=== PATIENT | female | born 1935 | race Caucasian/White ===

== ENCOUNTER → 2016-06-07 | Outpatient (CLI) | payer BC ==
[~2016-06-07] MED LIST: BENA20TA14 PO; CALC600T PO; LORA-741 PO; MULT-580 PO; SIMV20TA2 PO; VITACAP PO
[2016-06-07 12:20] LABS: ALT/SGPT 26 U/L (12-78); BLOOD UREA NITROGEN 21 mg/dl (7-18); BUN/CREATININE RATIO 35.9 (10-20); CALCIUM 9.1 mg/dl (8.5-10.1); CARBON DIOXIDE 32 mmol/L (21-32); CHLORIDE 103 mmol/L (98-107); CHOLESTEROL 218 mg/dl (0-200); CREATININE 0.58 mg/dl (0.60-1.20); GLUCOSE 82 mg/dl (70-99); POTASSIUM 4.1 mmol/L (3.5-5.1); SODIUM 141 mmol/L (136-145)
[2016-06-07 12:24] LABS: ALB/GLOB RATIO 1.2 (0.9-2); ALKALINE PHOSPHATASE 68 U/L (45-117); AST/SGOT 23 U/L (15-37); CHOLESTEROL/HDL RATIO 3.1; HDL CHOLESTEROL 70 mg/dl; LDL CHOLESTEROL CALCULATED 126 mg/dl; TRIGLYCERIDES 108 mg/dl (0-150); VERY LOW DENSITY LIPOPROT CALC 22 mg/dl
[2016-06-07 12:34] LABS: ESTIMATED AVERAGE GLUCOSE 117 mg/dl; HA1C FLAG Normal (Normal)
== END | disposition home or self-care (01) ==
LOC: C.LABBC 10:20
PROVIDERS: ATTEND Family Medicine
DX: R73.09 Other abnormal glucose (principal)

== ENCOUNTER 2016-10-21 10:39 | Emergency (ER) | payer BC ==
[~2016-10-21] VITALS: Ht 157.5 cm; Wt 68.1 kg
[~2016-10-21 10:39] MED LIST changes: -LORA-741 PO
[2016-10-21 10:42] VITALS: TEMP 36.6; Ht 157.5 cm; Wt 68.1 kg
[2016-10-21] MEDS ORDERED: LORA-741 PO (11:10)
--- NOTE | 2016-10-21 11:11 | EMERGENCY ROOM VISIT NOTE ---
History Report prepared by Luisa: Jes Flores Under the Supervision of: Dr. Jose Wylie M.D. First contact with patient: 10:55 Chief Complaint: FALL Stated Complaint: HEAD INJURY FROM A FALL History of Present Illness The patient is a 80 year old female who presents to the Emergency Room with complaints of a sudden fall that occurred this morning prior to arrival. She currently rates her discomfort as a 5/10 in severity. The patient states that three times per week she goes to an exercise class with a friend due to her chronic back problems. She states that as she was walking in to the facility when she tripped over weights, causing her to fall face and head first into a door. The patient states that she notes right forehead pain, right eye pain. She notes that she felt unsteady on her feet after the fall, but states that her gait has improved. The patient denies any loss of consciousness, neck pain , or back pain. She denies being on any blood thinners. Source of History: patient Onset: this morning prior to arrival Position: other (global) Symptom Intensity: 5/10 Quality: other (fall) Timing: other (sudden) Associated Symptoms: No LOC, No back pain, No neck pain Note: Associated Symptoms: right eye pain, unsteady gait Review of Systems See HPI for pertinent positives & negatives. A total of 10 systems reviewed and were otherwise negative. Past Medical & Surgical Medical Problems: (1) Bronchitis (2) History of appendectomy (3) History of tonsillectomy (4) Left leg DVT (5) Pneumonia Surgical Problems: (1) H/O: hysterectomy Family History Heart disease Hypertension Kidney disease Kidney stones Social History Smoking Status: Never Smoker Smokeless Tobacco Use: No Alcohol Use: none Marital Status: Housing Status: lives with significant other Occupation Status: retired Current/Historical Medications Scheduled Benazepril (Lotensin), 20 MG PO DAILY Calcium Carbonate (Calcium 600), 600 MG PO DAILY Lorazepam (Ativan), 0.5 MG PO BID Simvastatin (Zocor), 20 MG PO HS Vitamins C & E (Vitamin C & E Combination), 1 CAP PO DAILY Allergies Coded Allergies: Atropine (Verified Allergy, Unknown, 10/21/16) Cephalosporins (Verified Allergy, Unknown, CEPHALEXIN, 10/21/16) Meperidine (Verified Allergy, Unknown, 10/21/16) Physical Exam Vital Signs Date Time Temp Pulse Resp B/P Pulse Ox O2 Delivery O2 Flow Rate FiO2 10/21/16 12:18 74 18 190/101 96 10/21/16 10:55 196/118 10/21/16 10:42 36.6 82 18 222/111 98 Room Air Physical Exam GENERAL: Patient is a healthy-appearing well-nourished HEAD: Normocephalic atraumatic EYES: Ocular movements intact pupils equal and react to light OROPHARYNX mucous membranes are moist no exudates present no erythema or edema present NECK: Supple no nuchal rigidity CHEST: Good equal expansion LUNGS: Clear and equal to auscultation CARDIAC: Normal S1 and S2 ABDOMEN: Soft nontender no guarding BACK: No CVA tenderness EXTREMITIES: No pain upon palpation normal muscle strength in all groups no clubbing cyanosis or edema NEURO: Patient is following commands is answering questions appropriately. Alert and oriented x3 Cranial Nerves 2-12 grossly intact. Patient is able to walk on tip toes and heels, no evidence for balance dysfunction. Medical Decision & Procedures ER Provider Diagnostic Interpretation: CT results as stated below per my review and radiologist interpretation: CT OF THE HEAD WITHOUT CONTRAST CLINICAL HISTORY: Fall. Right eye pain. COMPARISON STUDY: No previous studies for comparison. CT DOSE: 638.56 mGycm TECHNIQUE: Helical axial images of the head were obtained without IV contrast. Automated exposure control was utilized for the study. FINDINGS: No acute intracranial hemorrhage, midline shift or mass effect is present. Ventricular system is normal. Basilar cisterns are patent. There are no extra-axial collections. Moderate white matter hypodensity suggests small vessel disease. A mildly displaced left nasal bone fracture is probably old. The right maxillary sinus is diminutive. There is a 2.1 cm expansile lesion within the right ethmoid sinuses which could reflect a mucocele. The globes are intact. There is no calvarial fracture. IMPRESSION: 1. No acute intracranial findings. 2. No calvarial fracture. 3. Mildly displaced left nasal bone fracture which is likely old. 4. 2.1 cm expansile right ethmoid sinus lesion. While indeterminate, a mucocele is favored. Electronically signed by: Richie Lion M.D. 10/21/2016 11:49 AM Dictated Date/Time: 10/21/2016 11:44 AMCT OF THE HEAD WITHOUT CONTRAST CLINICAL HISTORY: Fall. Right eye pain. COMPARISON STUDY: No previous studies for comparison. CT DOSE: 638.56 mGycm TECHNIQUE: Helical axial images of the head were obtained without IV contrast. Automated exposure control was utilized for the study. FINDINGS: No acute intracranial hemorrhage, midline shift or mass effect is present. Ventricular system is normal. Basilar cisterns are patent. There are no extra-axial collections. Moderate white matter hypodensity suggests small vessel disease. A mildly displaced left nasal bone fracture is probably old. The right maxillary sinus is diminutive. There is a 2.1 cm expansile lesion within the right ethmoid sinuses which could reflect a mucocele. The globes are intact. There is no calvarial fracture. IMPRESSION: 1. No acute intracranial findings. 2. No calvarial fracture. 3. Mildly displaced left nasal bone fracture which is likely old. 4. 2.1 cm expansile right ethmoid sinus lesion. While indeterminate, a mucocele is favored. Electronically signed by: Richie Lion M.D. 10/21/2016 11:49 AM Dictated Date/Time: 10/21/2016 11:44 AM ED Course 1058: Past medical records reviewed. The patient was evaluated in room C1B. A complete history and physical examination was performed. 1159: Per nursing staff the patient had an ambulation trial and did well. 1200: I reevaluated the patient and she is resting comfortably. I discussed the exam findings with her and I discussed the treatment plan. She verbalized complete understanding and agreement. She is ready to go home. Medical Decision This is a 80-year-old female that presents emergency department after a fall at home. The patient was sent in by her primary care physician's office over concerns that the patient was off balance. The patient reports that she was stunned was feeling a lot better now. She was sent for CAT scan of the head which does not show any evidence of acute process. The patient was a related by myself as well as nursing staff. The patient is able to walk on her tiptoes and her heels and I feel can be safely discharged home. Both patient and were in agreement with the treatment plan. Impression Primary Impression: Black eye of right side Additional Impression: Fall Scribe Attestation The scribe's documentation has been prepared under my direction and personally reviewed by me in its entirety. I confirm that the note above accurately reflects all work, treatment, procedures, and medical decision making performed by me. Departure Information Dispostion Home / Self-Care Referrals Tayo Payne M.D. (PCP) Forms HOME CARE DOCUMENTATION FORM, IMPORTANT VISIT INFORMATION Patient Instructions Black Eye, ED Head Injury Closed, My [facility] Additional Instructions You have been examined and treated today on an emergency basis only. This is not a substitute for, or an effort to provide, complete comprehensive medical care. It is impossible to recognize and treat all injuries or illnesses in a single emergency department visit. It is therefore important that you follow up closely with Dr Payne. Call as soon as possible for an appointment. Thank you for your time and consideration. I look forward to speaking with you again soon. Please don't hesitate to call us if you have any questions.- Problem Qualifiers Additional Impression: Fall Encounter type: initial encounter Qualified Codes: W19.XXXA - Unspecified fall, initial encounter
--- NOTE | 2016-10-21 11:50 | DIAGNOSTIC IMAGING REPORT ---
CT OF THE HEAD WITHOUT CONTRAST CLINICAL HISTORY: Fall. Right eye pain. COMPARISON STUDY: No previous studies for comparison. CT DOSE: 638.56 mGycm TECHNIQUE: Helical axial images of the head were obtained without IV contrast. Automated exposure control was utilized for the study. FINDINGS: No acute intracranial hemorrhage, midline shift or mass effect is present. Ventricular system is normal. Basilar cisterns are patent. There are no extra-axial collections. Moderate white matter hypodensity suggests small vessel disease. A mildly displaced left nasal bone fracture is probably old. The right maxillary sinus is diminutive. There is a 2.1 cm expansile lesion within the right ethmoid sinuses which could reflect a mucocele. The globes are intact. There is no calvarial fracture. IMPRESSION: 1. No acute intracranial findings. 2. No calvarial fracture. 3. Mildly displaced left nasal bone fracture which is likely old. 4. 2.1 cm expansile right ethmoid sinus lesion. While indeterminate, a mucocele is favored. Electronically signed by: Richie Lion M.D. 10/21/2016 11:49 AM Dictated Date/Time: 10/21/2016 11:44 AM
[2016-10-21 12:18] VITALS: BP 190/101; PULSE 74; O2SAT 96
== END 2016-10-21 12:21 | disposition home or self-care (01) ==
LOC: C.EDB 10:41 → C.EDC 12:21
DX: S00.11XA Contusion of right eyelid and periocular area, initial encounter (principal); W01.0XXA Fall on same level from slipping, tripping and stumbling without subsequent striking against object, initial encounter; Y92.89 Other specified places as the place of occurrence of the external cause; Z86.718 Personal history of other venous thrombosis and embolism; Z90.710 Acquired absence of both cervix and uterus; Z98.890 Other specified postprocedural states; Z79.899 Other long term (current) drug therapy; Z88.8 Allergy status to other drugs, medicaments and biological substances; Z82.49 Family history of ischemic heart disease and other diseases of the circulatory system; Z84.1 Family history of disorders of kidney and ureter

== ENCOUNTER → 2017-03-17 | Outpatient (CLI) | payer BC ==
[~2017-03-17] MED LIST changes: +LORA-741 PO; -MULT-580 PO
--- NOTE | 2017-03-17 15:55 | ECHOCARDIOGRAM REPORT ---
*NOTICE TO RECEIVING CONSTITUTION PARTY AGENCY This information is strictly Confidential and protected under [place] law. [place] law prohibits you from making any further disclosure of this information unless further disclosure is expressly permitted by the written consent of the person to whom it pertains or is authorized by law. A general authorization for the release of medical or other information is not sufficient for this purpose. Hospital accepts no responsibility if the information is made available to any other person, INCLUDING THE PATIENT. Interpretation Summary * Name: TRAY MENDOZA Study Date: 03/17/2017 01:00 PM * Patient Location: [facility] HR: 63 * : 1935 (M/d/yyyy) Gender: Female Height: 61 in * Age: 81 yrs Ethnicity: [place] Weight: 148 lb * Ordering Physician: Tayo Payne * Referring Physician: Tayo Payne. * Performed By: Bhakti Burns RCS * * Reason For Study: EDEMA / R/O CHF * BSA: 1.7 m2 * -- Conclusions -- * Left ventricular systolic function is normal. * No regional wall motion abnormalities noted. * Ejection Fraction = 60-65%. * There is mild concentric left ventricular hypertrophy. * Grade I diastolic dysfunction, (abnormal relaxation pattern). * There is mild mitral regurgitation. * There is mild tricuspid regurgitation. Procedure Details * A complete two-dimensional transthoracic echocardiogram was performed (2D, M-mode, Doppler and color flow Doppler). Left Ventricle * The left ventricle is normal in size. * There is mild concentric left ventricular hypertrophy. * Left ventricular systolic function is normal. * Ejection Fraction = 60-65%. * No regional wall motion abnormalities noted. Right Ventricle * The right ventricle is grossly normal size. * The right ventricular systolic function is normal as assessed by tricuspid annular plane systolic excursion (TAPSE) (normal >1.5 cm). Atria * The left atrium is mildly dilated. * Borderline right atrial enlargement. * No ASD detected; PFO is not assessed. Mitral Valve * The mitral valve is grossly normal. * There is no mitral valve stenosis. * There is mild mitral regurgitation. Tricuspid Valve * The tricuspid valve is not well visualized, but is grossly normal. * No significant tricuspid stenosis. * There is mild tricuspid regurgitation. Aortic Valve * The aortic valve is not well visualized. * The aortic valve opens well. * Aortic valve sclerosis mild, without significant aortic valvular stenosis. * There is no significant aortic regurgitation. Pulmonic Valve * The pulmonary valve is not well seen, but the Doppler examination is normal without significant regurgitation or stenosis. Great Vessels * The aortic root is normal size. * The pulmonary is not well visualized. Pericardium/Pleural * There is no pericardial effusion. Great Vessels * Normal inferior vena cava size and collapsability with sniff indicates a normal right atrial pressure of 3 mmHg Left Ventricular Diastolic Function * Grade I diastolic dysfunction, (abnormal relaxation pattern). MMode 2D Measurements and Calculations IVSd 1.3 cm IVSs 1.6 cm LVIDd 3.3 cm LVIDs 2.0 cm LVPWd 1.2 cm LVPWs 1.3 cm IVS/LVPW 1.1 FS 39.8 % EDV(Teich) 43.1 ml ESV(Teich) 12.2 ml EF(Teich) 71.7 % EDV(cubed) 34.9 ml ESV(cubed) 7.6 ml EF(cubed) 78.2 % % IVS thick 21.4 % % LVPW thick 6.8 % LV mass(C)d 136.0 grams LV mass(C)dI 81.8 grams/m\S\2 LV mass(C)s 91.8 grams LV mass(C)sI 55.2 grams/m\S\2 SV(Teich) 30.9 ml SI(Teich) 18.6 ml/m\S\2 SV(cubed) 27.3 ml SI(cubed) 16.4 ml/m\S\2 Ao root diam 2.9 cm Ao root area 6.5 cm\S\2 ACS 1.7 cm LA dimension 2.7 cm LA/Ao 0.92 LVOT diam 2.0 cm LVOT area 3.2 cm\S\2 Doppler Measurements and Calculations MV E max august 65.8 cm/sec MV A max august 109.5 cm/sec MV E/A 0.60 MV P1/2t max august 66.4 cm/sec MV P1/2t 61.8 msec MVA(P1/2t) 3.6 cm\S\2 MV dec slope 314.7 cm/sec\S\2 MV dec time 0.19 sec Ao V2 max 77.6 cm/sec Ao max PG 2.4 mmHg Ao max PG (full) -0.24 mmHg DONNA(V,A) 3.3 cm\S\2 DONNA(V,D) 3.3 cm\S\2 LV V1 max PG 2.7 mmHg LV V1 max 81.4 cm/sec PA V2 max 50.9 cm/sec PA max PG 1.0 mmHg TR max august 242.4 cm/sec
== END | disposition home or self-care (01) ==
LOC: C.CPL 12:40
PROVIDERS: ATTEND Family Medicine
DX: R60.9 Edema, unspecified (principal)

== ENCOUNTER → 2017-06-19 | Outpatient (CLI) | payer BC ==
[2017-06-19 10:58] LABS: BASO % 0.3 %; BASO ABS # 0.01 K/uL (0-0.2); EOS % 3.4 %; EOS ABS # 0.13 K/uL (0-0.5); HEMATOCRIT 42.8 % (37-47); HEMOGLOBIN 14.6 g/dL (12.0-16.0); IG# 0.01 K/uL (0.00-0.02); LYMPH % 45.7 %; LYMPH ABS # 1.76 K/uL (1.2-3.4); MEAN CELL VOLUME 87.5 fL (80-100); MEAN CORPUSCULAR HEMOGLOBIN 29.9 pg (25-34); MEAN CORPUSCULAR HGB CONC 34.1 g/dl (32-36); MEAN PLATELET VOLUME 10.1 fL (7.4-10.4); MONO % 11.2 %; MONO ABS # 0.43 K/uL (0.11-0.59); NEUT % 39.1 %; NEUT ABS # 1.51 K/uL (1.4-6.5); PLATELET COUNT 259 K/uL (130-400); RED CELL DISTRIBUTION WIDTH CV 14.6 % (11.5-14.5); RED CELL DISTRIBUTION WIDTH SD 46.9 fL (36.4-46.3); WHITE BLOOD COUNT 3.85 K/uL (4.8-10.8)
[2017-06-19 11:26] LABS: HEMOGLOBIN A1C 5.7 % (4.5-5.6)
[2017-06-19 11:37] LABS: ALBUMIN 3.7 gm/dl (3.4-5.0); ALT/SGPT 25 U/L (12-78); BLOOD UREA NITROGEN 17 mg/dl (7-18); CALCIUM 9.6 mg/dl (8.5-10.1); CARBON DIOXIDE 33 mmol/L (21-32); CHOLESTEROL 217 mg/dl (0-200); CREATININE 0.61 mg/dl (0.60-1.20); GLUCOSE 86 mg/dl (70-99); POTASSIUM 4.1 mmol/L (3.5-5.1); SODIUM 138 mmol/L (136-145); URIC ACID 4.9 mg/dl (2.6-7.2)
[2017-06-19 11:47] LABS: ALKALINE PHOSPHATASE 63 U/L (45-117); AST/SGOT 21 U/L (15-37); LDL CHOLESTEROL CALCULATED 127 mg/dl; TOTAL PROTEIN 7.2 gm/dl (6.4-8.2); TRANSFERRIN 318 mg/dl (200-360)
== END | disposition home or self-care (01) ==
LOC: C.LABBC 08:12
PROVIDERS: ATTEND Family Medicine
DX: R73.09 Other abnormal glucose (principal); E55.9 Vitamin D deficiency, unspecified; D51.9 Vitamin B12 deficiency anemia, unspecified; E78.9 Disorder of lipoprotein metabolism, unspecified; R53.83 Other fatigue

== ENCOUNTER 2021-05-27 03:14 | Inpatient (IN) ==
[2021-05-27] MEDS ORDERED: SODIUM CHLORIDE 0.9% 1000ML 1,000 ML IV ONE (03:26)
--- NOTE | 2021-05-27 03:34 | Emergency Department Note ---
Impression & Plan Syncope and collapse, Dehydration, moderate, Diarrhea ED Provider Note Name: TRAY MENDOZA Age: 85 Sex: F Arrives Via: Ambulance Informant: Patient, daughter ED Provider: Alex Guardado MD Chief Complaint: Syncope Impression: As per impressions above Medical Decision Makin-year-old female with a history of hypertension anxiety and vitamin D deficiency who has a very remote history of DVT which after further discussion appears to be secondary to surgery she had had on her leg. Patient arrives following a syncopal episode while sitting on the toilet after having a large amount of diarrhea the last 2 days. She is moderately dehydrated but otherwise l ooks quite well. She was given IV fluids and is feeling better. CT head is negative. EKG and troponin are unremarkable. D-dimer is within normal range for patient of her age. She is in no distress and she looks well. Unfortunately given prolonged syncope and the concerns for other issues I do not feel that blaming this on dehydration without further work-up would be appropriate. Patient and daughter are comfortable with monitoring in hospital and hospitalist was consulted for further management. I do not feel patient has a PE. Does not appear to be ACS though cannot rule out arrhythmia however on cardiac monitoring while in department she has no abnormalities noted. Prior Medical Record and Triage/Nursing Notes reviewed by Me Additional history obtained from chart Differentials:Vasovagal event, dehydration, infection, hypoglycemia, electrolyte abnormalities, cardiac sources, intracerebral event, pulmonary embolism, seizure, toxicologic, neurologic, as well as other pathologies. Vital Signs: reviewed and remarkable for no significant abnormalities Interventions: Normal saline 1 L bolus IV Labs:Reviewed and remarkable for no significant abnormalities Imagin view chest x-ray unremarkable. CT head as per stat read negative EKG:Per My Interpretation: Indication Syncope: Sinus 84 bpm, qtc 423 with PACs. No Ischemia. Compared to EKG 06/02/04, no significant changes. Cardiac/Tele Monitoring: Cardiac Monitoring: An Order was placed for continuous cardiac monitoring. The monitor shows a rate of 80 with a normal sinus rhythm. Consults:Dr Izzy ZHONG Hospitalist Plan: Disposition:Hospitalization. Condition: Good History of Present Illness:85-year-old female arrives via EMS for evaluation following syncope patient notes she has been dealing with diarrhea throughout last 24 hours. She states anytime she eats or drinks something she has diarrhea. She denies any blood in stool and does have some firm pieces of stool in between diarrhea. She has no known sick contacts and denies eating anything that would have given her diarrhea. Patient notes that she had a quite a severe headache on Friday and Friday morning along with some left ear pain. She only has a mild headache currently and has no ear pain at the moment. She does not think she struck her head when she passed out. She states she thinks she was sitting on the toilet and was about to stand when she slid to the ground but does not really remember. Per the daughter patient was unconscious for only a brief amount of time which was when her son went to evaluate her. Patient denies any focal weakness, chest pain, shortness of breath, back pain, abdominal pain, urinary symptoms, leg swelling, calf pain, vision changes, fevers, chills, nausea, vomiting or other symptoms. Patient has taken no medications for this. She does note she took aspirin 2 tablets yesterday for the headache which seemed to help. Patient has a remote history of a DVT in the left leg. 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 Patient is not on any blood thinners at this time and has not been on any in quite some time. Patient denies any family history of DVT/PE ROS: See above HPI for pertinent positives & negatives. A total of 10 systems reviewed and were otherwise negative. Past Medical History:DVT, hypertension, anxiety, vitamin D deficiency Past Surgical History:Tumor removal left leg Family History:Denies DVT/PE history. Patient notes mother had a stroke Social History:Patient is retired. Denies alcohol use, drug use, tobacco use Home Medications:Hydrochlorothiazide/spironolactone Allergies:Atropine, cephalosporins, meperidine Vitals:Blood Pressure: 181/82, Pulse 103, RR 16, T 36.9C, O2 96% on RA Physical Exam: GENERAL: Patient is dehydrated and tired appearing appearing and in no distress. EYES: No scleral icterus, unremarkable pupils. ENT: Mucous membranes dry, no nasal congestion, left TM normal. NECK: No masses appreciated, nomeningismus, trachea is midline. RESPIRATORY: No dyspnea. Clear to auscultation and equal bilaterally. No wheeze, no rhonchi. CARDIOVASCULAR: Mildly Tach.No murmurs, rubs, gallops appreciated. GASTROINTESTINAL: Abdomen soft, non-tender, no peritonitis.Bowel sounds positive.No masses appreciated. BACK: No midline tenderness, no CVA tenderness EXTREMITIES: Normal motion all extremities, no cyanosis, no edema. NEUROLOGIC: Alert and oriented, no acute motor or sensory deficits, no focal weakness, cranial nerves grossly intact. SKIN: No rash, no jaundice, no diaphoresis. PSYCH: Appropriate GCS: 15 ED Course: Times/Reassessments: Patient stable and feeling well. She does appear improved with IV fluids. 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 Beliefs That Will Affect Care: None Current Living Situation: Family Feels Safe at Home: Yes Safety Concerns: Feels Safe At This Time Allergies Allergies Allergy/AdvReac Type Severity Reaction Status Date / Time atropine Allergy Unknown Unknown Verified 05/27/21 07:30 Cephalosporins Allergy Unknown CEPHALEXIN Verified 05/27/21 07:30 meperidine Allergy Unknown Unknown Verified 05/27/21 07:30 Home Meds Home Medications Medication Instructions Recorded Confirmed alprazolam 0.25 mg tablet 0.25 mg PO PM 12/18/19 05/27/21 cholecalciferol (vitamin D3) 25 25 mcg PO DAILY 12/18/19 05/27/21 mcg (1,000 unit) tablet (Vitamin D3) multivitamin with minerals 1 tab PO DAILY 12/18/19 05/27/21 (Hair,Skin and Nails) spironolactone 25 1 tab PO DAILY 12/18/19 05/27/21 mg-hydrochlorothiazide 25 mg tablet timolol maleate 0.25 % eye drops 1 drp OPB QAM 12/18/19 05/27/21 vitamin E 100 unit capsule 100 unit PO DAILY 12/18/19 05/27/21 coenzyme Q10 10 mg capsule 10 mg PO DAILY 05/27/21 05/27/21 Results & Data (ED) Vital Signs Vital Signs - 24 hr 05/27/21 03:15 05/27/21 03:38 05/27/21 05:28 Temperature 36.9 C Temperature Source Oral Pulse Rate 103 H Pulse Rate [Finger] 84 81 Pulse Rhythm [Finger] Regular Respiratory Rate 16 18 18 Respiratory Effort / Characteristics Non-Labored Spontaneous Non-Labored Spontaneous Respiratory Depth Normal Normal Normal Blood Pressure 181/82 H Blood Pressure [Right Arm] 181/82 H 150/88 H Blood Pressure Mean 115 Blood Pressure Mean [Right Arm] 115 108 Pulse Oximetry 96 98 93 Oxygen Delivery Method Room Air Room Air Room Air Sepsis Recent Fever Within 48 Hours No Sepsis New/Unexplained Change in Mental Status N/A Sepsis Action Taken by Nursing No Action Required 05/27/21 07:00 05/27/21 10:00 05/27/21 14:00 Temperature Temperature Source Pulse Rate Pulse Rate [Finger] 80 88 75 Pulse Rhythm [Finger] Respiratory Rate 23 20 19 Respiratory Effort / Characteristics Non-Labored Non-Labored Spontaneous Respiratory Depth Normal Normal Blood Pressure Blood Pressure [Right Arm] 134/80 124/75 149/86 H Blood Pressure Mean Blood Pressure Mean [Right Arm] 98 91 107 Pulse Oximetry 94 95 98 Oxygen Delivery Method Room Air Room Air Room Air Sepsis Recent Fever Within 48 Hours Sepsis New/Unexplained Change in Mental Status Sepsis Action Taken by Nursing Laboratory Data Result diagrams: 05/27/21 03:33 05/27/21 03:33 Lab Results 05/27/21 05/27/21 05/27/21 Range/Units 03:33 03:33 03:33 WBC 10.88 H (4.8-10.8) K/uL RBC 4.80 (4.2-5.4) M/uL Hgb 14.4 (12.0-16.0) g/dL Hct 43.0 (37-47) % MCV 89.6 (80-100) fL MCH 30.0 (25-34) pg MCHC 33.5 (32-36) g/dL RDW Std Deviation 44.6 (36.4-46.3) fL RDW Coeff of Cecy 13.5 (11.5-14.5) % Plt Count 241 (130-400) K/uL MPV 10.3 (7.4-10.4) fL Immature Gran % (Auto) 0.2 % Neut % (Auto) 69.2 % Lymph % (Auto) 15.1 % [place] % (Auto) 14.8 % Eos % (Auto) 0.6 % Baso % (Auto) 0.1 % Neut # (Auto) 7.53 H (1.4-6.5) K/uL Lymph # (Auto) 1.64 (1.2-3.4) K/uL [place] # (Auto) 1.61 H (0.11-0.59) K/uL Eos # (Auto) 0.07 (0-0.5) K/uL Baso # (Auto) 0.01 (0-0.2) K/uL Immature Gran # (Auto) 0.02 (0.00-0.02) K/uL D-Dimer 770 H* (0-500) ug/L FEU Sodium 136 (136-145) mmol/L Potassium 3.4 L (3.5-5.1) mmol/L Chloride 100 (98-107) mmol/L Carbon Dioxide 32 (21-32) mmol/L Anion Gap 4.0 (3-11) BUN 18 (7-18) mg/dl Creatinine 0.84 (0.6-1.2) mg/dl Est Cr Clr Drug Dosing 44.5 ml/min Est GFR ( Amer) 74.0 ml/min Est GFR (Non-Af Amer) 63.8 ml/min BUN/Creatinine Ratio 20.8 H (10-20) Glucose 115 H (70-99) mg/dl Calcium 9.3 (8.5-10.1) mg/dl Magnesium 1.8 (1.8-2.4) mg/dl Total Bilirubin 0.7 (0.2-1) mg/dl Direct Bilirubin 0.2 (0-0.2) mg/dl AST 25 (15-37) U/L ALT 35 (12-78) Alkaline Phosphatase 67 (45-117) U/L Troponin I < 0.015 (0-0.045) ng/ml Total Protein 7.3 (6.4-8.2) gm/dl Albumin 3.5 (3.4-5.0) gm/dl Lipase 103 (73-393) U/L Urine Color Urine Appearance (Clear) Urine pH (4.5-7.5) Ur Specific [place] (1.000-1.030) Urine Protein (Negative) Urine Glucose (UA) (Negative) Urine Ketones (Negative) Urine Blood (Negative) Urine Nitrite (Negative) Urine Bilirubin (Negative) Urine Urobilinogen (Negative) Ur Leukocyte Esterase (Negative) Urine WBC (Auto) (0-5) /hpf Urine RBC (Auto) (0-4) /hpf U Hyaline Cast (Auto) (0-5) /lpf U Epithel Cells (Auto) (0-5) /lpf Urine Bacteria (Auto) (Negative) Stl C. cayetanensis PCR (NotDetected) Stool Rotavirus A PCR (NotDetected) Stl Adenov F 40/41 PCR (NotDetected) Stool Astrovirus (PCR) (NotDetected) Stool Campylobacter PCR (NotDetected) Stl C. diff Tox B Gene Stl C.difficile Tox A&B (Negative) Stl C. diff Tox A/B PCR (NotDetected) Stool Cryptosporidium PCR (NotDetected) Stl E.coli Shiga Tox PCR (NotDetected) Stl Enterotoxigenic E PCR (NotDetected) Stool EPEC (PCR) (NotDetected) Stool EAEC (PCR) (NotDetected) Stl E. histolytica PCR (NotDetected) Stool Giardia Lamblia PCR (NotDetected) Stool Salmonella PCR (NotDetected) Stool Sapovirus (PCR) (NotDetected) Stl P. shigelloides PCR (NotDetected) Stl Shigella/EIEC PCR (NotDetected) St Y.enterocolitica PCR (NotDetected) Stool Vibrio (PCR) (NotDetected) Stl Vibrio cholerae PCR (NotDetected) Stl Norovirus GI/GII PCR (NotDetected) SARS-CoV-2 (PCR) (Negative) Influenza Type A (PCR) (Neg) Influenza Type B (PCR) (Neg) RSV (RT-PCR) (Neg) 05/27/21 05/27/21 05/27/21 Range/Units 03:50 06:05 09:47 WBC (4.8-10.8) K/uL RBC (4.2-5.4) M/uL Hgb (12.0-16.0) g/dL Hct (37-47) % MCV (80-100) fL MCH (25-34) pg MCHC (32-36) g/dL RDW Std Deviation (36.4-46.3) fL RDW Coeff of Cecy (11.5-14.5) % Plt Count (130-400) K/uL MPV (7.4-10.4) fL Immature Gran % (Auto) % Neut % (Auto) % Lymph % (Auto) % [place] % (Auto) % Eos % (Auto) % Baso % (Auto) % Neut # (Auto) (1.4-6.5) K/uL Lymph # (Auto) (1.2-3.4) K/uL [place] # (Auto) (0.11-0.59) K/uL Eos # (Auto) (0-0.5) K/uL Baso # (Auto) (0-0.2) K/uL Immature Gran # (Auto) (0.00-0.02) K/uL D-Dimer (0-500) ug/L FEU Sodium (136-145) mmol/L Potassium (3.5-5.1) mmol/L Chloride (98-107) mmol/L Carbon Dioxide (21-32) mmol/L Anion Gap (3-11) BUN (7-18) mg/dl Creatinine (0.6-1.2) mg/dl Est Cr Clr Drug Dosing ml/min Est GFR ( Amer) ml/min Est GFR (Non-Af Amer) ml/min BUN/Creatinine Ratio (10-20) Glucose (70-99) mg/dl Calcium (8.5-10.1) mg/dl Magnesium (1.8-2.4) mg/dl Total Bilirubin (0.2-1) mg/dl Direct Bilirubin (0-0.2) mg/dl AST (15-37) U/L ALT (12-78) Alkaline Phosphatase (45-117) U/L Troponin I (0-0.045) ng/ml Total Protein (6.4-8.2) gm/dl Albumin (3.4-5.0) gm/dl Lipase (73-393) U/L Urine Color Yellow Urine Appearance Clear (Clear) Urine pH 6.5 (4.5-7.5) Ur Specific [place] 1.009 (1.000-1.030) Urine Protein Negative (Negative) Urine Glucose (UA) Negative (Negative) Urine Ketones Negative (Negative) Urine Blood Negative (Negative) Urine Nitrite Negative (Negative) Urine Bilirubin Negative (Negative) Urine Urobilinogen Negative (Negative) Ur Leukocyte Esterase Trace H (Negative) Urine WBC (Auto) 1-5 (0-5) /hpf Urine RBC (Auto) 0-4 (0-4) /hpf U Hyaline Cast (Auto) 0 (0-5) /lpf U Epithel Cells (Auto) 5-10 H (0-5) /lpf Urine Bacteria (Auto) Negative (Negative) Stl C. cayetanensis PCR Not Detected (NotDetected) Stool Rotavirus A PCR Not Detected (NotDetected) Stl Adenov F 40/41 PCR Not Detected (NotDetected) Stool Astrovirus (PCR) Not Detected (NotDetected) Stool Campylobacter PCR Not Detected (NotDetected) Stl C. diff Tox B Gene Cancelled Stl C.difficile Tox A&B Positive Cdiff Toxin A* (Negative) Stl C. diff Tox A/B PCR C.diff Gene Detected A (NotDetected) Stool Cryptosporidium PCR Not Detected (NotDetected) Stl E.coli Shiga Tox PCR Not Detected (NotDetected) Stl Enterotoxigenic E PCR Not Detected (NotDetected) Stool EPEC (PCR) Not Detected (NotDetected) Stool EAEC (PCR) Not Detected (NotDetected) Stl E. histolytica PCR Not Detected (NotDetected) Stool Giardia Lamblia PCR Not Detected (NotDetected) Stool Salmonella PCR Not Detected (NotDetected) Stool Sapovirus (PCR) Not Detected (NotDetected) Stl P. shigelloides PCR Not Detected (NotDetected) Stl Shigella/EIEC PCR Not Detected (NotDetected) St Y.enterocolitica PCR Not Detected (NotDetected) Stool Vibrio (PCR) Not Detected (NotDetected) Stl Vibrio cholerae PCR Not Detected (NotDetected) Stl Norovirus GI/GII PCR Not Detected (NotDetected) SARS-CoV-2 (PCR) NEGATIVE (Negative) Influenza Type A (PCR) Negative (Neg) Influenza Type B (PCR) Negative (Neg) RSV (RT-PCR) Negative (Neg) Administered Medications Heparin Sodium (Porcine) (Heparin Sod 5,000 Unit/0.5 Ml Vial) 5,000 units SQ Q12 MAAME Stop: 06/26/21 08:59 Last Admin: 05/27/21 22:58 Dose: 5,000 units Documented by: [id number] Admin: 05/27/21 10:22 Dose: 5,000 units Documented by: [id number] Potassium Chloride/Sodium Chloride (Normal Saline W/20 Meq Kcl) 20 meq in 1,000 mls @ 80 mls/hr IV .[id number] MAAME Stop: 05/28/21 09:56 Last Admin: 05/27/21 10:15 Dose: 80 mls/hr Documented by: [id number] Lactobacillus Acidoph/Casei/Rhamnos (Advanced Probiotic 1250 Mg Capsule) 2 cap PO DAILY MAAME Stop: 06/26/21 14:14 Last Admin: 05/27/21 16:07 Dose: 2 cap Documented by: [id number] Raspberry (Raspberry Syrup 5 Ml Udp) 5 ml PO Q6 MAAME Stop: 06/06/21 14:09 Last Admin: 05/27/21 19:18 Dose: Not Given Documented by: [id number] Admin: 05/27/21 16:06 Dose: 5 ml Documented by: [id number] Timolol Maleate (Timolol Gfs 0.5% Oph Soln 74 Drops/5 Ml Btl) 1 drops OPB QAM MAAME Stop: 06/26/21 08:59 Last Admin: 05/27/21 10:18 Dose: 1 drops Documented by: [id number] Vancomycin HCl (Vancomycin Hcl 125 Mg/2.5ml Soln) 125 mg PO Q6 MAAME Stop: 06/06/21 14:09 Last Admin: 05/27/21 19:19 Dose: Not Given Documented by: [id number] Admin: 05/27/21 16:07 Dose: 125 mg Documented by: [id number] Vitamin D (Cholecalciferol 1,000 Units 25 Mcg Tab) 1,000 units PO DAILY MAAME Stop: 06/26/21 08:59 Last Admin: 05/27/21 10:17 Dose: 1,000 units Documented by: [id number] Vitamin E (Tocopheryl, Dl-Alpha 100 Units Cap) 100 units PO DAILY MAAME Stop: 06/26/21 08:59 Last Admin: 12/26/21 10:17 Dose: 100 units Documented by: [id number] Discontinued Medications Sodium Chloride (Nss 1000ml) 1,000 mls @ 999 mls/hr IV .[id number] ONE Stop: 05/27/21 04:26 Last Infusion: 05/27/21 05:21 Dose: 0 mls/hr Documented by: [id number] Admin: 05/27/21 03:45 Dose: 999 mls/hr Documented by: [id number] Discharge Plan Visit Data Chief Complaint: Syncope Stated Complaint: SYNCOPAL EPISODE ED Provider: Alex Guardado Discharge Problem: Syncope and collapse, Dehydration, moderate, Diarrhea Discharge Instructions Interventions: ED Discharge Assessment Last Done: 05/27/21 09:00
[2021-05-27 03:47] LABS: Hemoglobin 14.4 g/dL (12.0-16.0); Mean Corpuscular Hgb Conc 33.5 g/dL (32-36); Mean Corpuscular Volume 89.6 fL (80-100); Mean Platelet Volume 10.3 fL (7.4-10.4); Platelet Count 241 K/uL (130-400); RDW Coefficient of Variation 13.5 % (11.5-14.5); RDW Standard Deviation 44.6 fL (36.4-46.3); White Blood Count 10.88 K/uL (4.8-10.8)
[2021-05-27 04:06] LABS: Alanine Aminotransferase 35 (12-78); Albumin Level 3.5 gm/dl (3.4-5.0); Aspartate Aminotransferase 25 U/L (15-37); BUN Creatinine Ratio 20.8 (10-20); Bilirubin Direct 0.2 mg/dl (0-0.2); Blood Urea Nitrogen 18 mg/dl (7-18); Calcium 9.3 mg/dl (8.5-10.1); Carbon Dioxide 32 mmol/L (21-32); Chloride 100 mmol/L (98-107); Creatinine Clr Calc Pharmacy 44.5 ml/min; Est GFR (Non-African American) 63.8 ml/min; Glucose 115 mg/dl (70-99); Lipase 103 U/L (73-393); Magnesium 1.8 mg/dl (1.8-2.4); Potassium 3.4 mmol/L (3.5-5.1); Sodium 136 mmol/L (136-145)
[2021-05-27 04:12] LABS: Alkaline Phosphatase 67 U/L (45-117); Bilirubin,Total 0.7 mg/dl (0.2-1); Total Protein 7.3 gm/dl (6.4-8.2); Troponin I < 0.015 ng/ml (0-0.045)
[2021-05-27 04:23] LABS: D Dimer 770 ug/L FEU (0-500)
[2021-05-27 04:42] LABS: Influenza A virus by PCR Negative (Neg); Influenza B virus by PCR Negative (Neg); RSV by PCR Negative (Neg); SARS CoV2 RNA(COVID-19) InHosp NEGATIVE (Negative)
[2021-05-27 05:25] LABS: Basophils # (auto) 0.01 K/uL (0-0.2); Basophils % (auto) 0.1 %; Eosinophils # (auto) 0.07 K/uL (0-0.5); Eosinophils % (auto) 0.6 %; Immature Granulocytes # (auto) 0.02 K/uL (0.00-0.02); Immature Granulocytes % (auto) 0.2 %; Lymphocytes # (auto) 1.64 K/uL (1.2-3.4); Lymphocytes % (auto) 15.1 %; Monocytes # (auto) 1.61 K/uL (0.11-0.59); Monocytes % (auto) 14.8 %; Neutrophils # (auto) 7.53 K/uL (1.4-6.5); Neutrophils % (auto) 69.2 %
[2021-05-27 06:37] LABS: Appearance Urine Clear (Clear); Bacteria Urine Automated Negative (Negative); Bilirubin Urine Negative (Negative); Blood Urine Negative (Negative); Cast Urine Automated 0 /lpf (0-5); Color Urine Yellow; Glucose Urine UA Negative (Negative); Ketones Urine Negative (Negative); Leukocyte Esterase Urine Trace (Negative); Nitrite Urine Negative (Negative); Protein Urine Negative (Negative); RBC Urine Automated 0-4 /hpf (0-4); Specific Gravity Urine 1.009 (1.000-1.030); Urobilinogen Urine Negative (Negative); pH Urine 6.5 (4.5-7.5)
--- NOTE | 2021-05-27 06:38 | History & Physical Report ---
Date of Service May 27, 2021 Assessment & Plan (1) Syncope and collapse: Plan: Likely secondary to defecation syncope/dehydration- CT head negative Only abnormality laboratories as mild hypokalemia (2) Hypokalemia due to excessive gastrointestinal loss of potassium: Plan: Hypokalemia/moderate dehydration- Hold spironolactone/HCTZ Potassium 3.4 NSS + KCl 20 mEq at 80 mils per hour x2 L (3) Dehydration, moderate: Plan: See above (4) Insomnia: Plan: Continue alprazolam at bedtime as needed (5) Glaucoma: Plan: Continue timolol maleate (6) Vitamin D deficiency: Plan: Continue vitamin D3 supplement (7) Hypertension: Plan: Hold spironolactone/HCTZ for now due to dehydration History of Present Illness Chief Complaint: The patient presents to the emergency department after her son heard her fall off the commode and found her on the floor. Primary Care Provider: Tayo Payne MD The patient is an 85-year-old female with a past medical history including insomnia, vitamin D deficiency, hypertension and glaucoma. She reports having a large number of loose stools during the day today, possibly as many as 10. She denies any new food intakes, or questionable old food intake. She has not had any previous occurrence of the symptoms. This single episode occurred while she was moving her bowels on the commode. Allergies Allergy/AdvReac Type Severity Reaction Status Date / Time atropine Allergy Unknown Unknown Verified 12/18/19 11:19 Cephalosporins Allergy Unknown CEPHALEXIN Verified 12/18/19 11:19 meperidine Allergy Unknown Unknown Verified 12/18/19 11:19 Home Medications Medication Instructions Recorded Confirmed Type alprazolam 0.25 mg tablet 0.25 mg PO PM 12/18/19 12/18/19 History cholecalciferol (vitamin D3) 25 25 mcg PO DAILY 12/18/19 12/18/19 History mcg (1,000 unit) tablet (Vitamin D3) multivitamin with minerals 1 tab PO DAILY 12/18/19 12/18/19 History (Hair,Skin and Nails) spironolactone 25 1 tab PO DAILY 12/18/19 12/18/19 History mg-hydrochlorothiazide 25 mg tablet timolol maleate 0.25 % eye drops 1 drp OPB QAM 12/18/19 12/18/19 History vitamin E 100 unit capsule 100 unit PO DAILY 12/18/19 12/18/19 History Past Med/Surg History Medical History (Updated 05/27/21 @ 06:35 by Garry Magana MD) Glaucoma Hypertension Insomnia Vitamin D deficiency Social History (System 12/02/19 @ 10:09 by Catherine Cevallos) Smoking Status: Never smoker Feels Safe at Home: Yes Review of Systems Review of Systems: The patient denies chest pain, palpitations, shortness of breath, dyspnea on exertion, cough, lower extremity swelling, sore throat, fevers, chills, sweats, nausea, vomiting, blood in urine or stool, dysuria, urinary frequency or urgency, lightheadedness, dizziness, rash, abnormal bruising or bleeding, focal weakness, numbness or tingling in arms or legs, generalized arthralgias or myalgias, back or neck pain, or night sweats. The review of systems is otherwise negative other than for that already noted above, and at least 10 systems have been reviewed. Physical Exam Physical Exam: The patient is awake, alert and oriented 3, well developed and well nourished, normocephalic and atraumatic, lying in bed and in no acute distress. HEENT--PERRL, EOMI, mucous membranes and oropharynx moderately dry. Neck--supple. No JVD. No bruits. Thyroid normal, trachea midline, no adenopathy. Heart--normal S1 and S2. No murmurs, rubs or gallops. Lungs--clear bilaterally, no respiratory distress, no accessory muscle use. Abdomen--normal bowel sounds and soft. Nontender. Nondistended, no hernias or masses, no organomegaly. Extremities--no cyanosis or clubbing. No edema. Dermatologic--skin is mildly dry Neurologic--cranial nerves II through XII grossly intact. Rheumatologic--normal range of motion. Psychiatric--normal affect. Results & Data Results & Data ([facility]) Vital Signs (Past 12 Hours) Vital Signs Temp Pulse Pulse Resp BP BP Pulse Ox 05/27/21 05:28 81 18 150/88 H 93 05/27/21 03:38 84 18 181/82 H 98 05/27/21 03:15 36.9 C 103 H 16 181/82 H 96 Laboratory Results Laboratory Results WBC 10.88 K/uL (4.8-10.8) H 05/27/21 03:33 RBC 4.80 M/uL (4.2-5.4) 05/27/21 03:33 Hgb 14.4 g/dL (12.0-16.0) 05/27/21 03:33 Hct 43.0 % (37-47) 05/27/21 03:33 MCV 89.6 fL (80-100) 05/27/21 03:33 MCH 30.0 pg (25-34) 05/27/21 03:33 MCHC 33.5 g/dL (32-36) 05/27/21 03:33 RDW Std Deviation 44.6 fL (36.4-46.3) 05/27/21 03:33 RDW Coeff of Cecy 13.5 % (11.5-14.5) 05/27/21 03:33 Plt Count 241 K/uL (130-400) 05/27/21 03:33 MPV 10.3 fL (7.4-10.4) 05/27/21 03:33 Immature Gran % (Auto) 0.2 % 05/27/21 03:33 Neut % (Auto) 69.2 % 05/27/21 03:33 Lymph % (Auto) 15.1 % 05/27/21 03:33 [place] % (Auto) 14.8 % 05/27/21 03:33 Eos % (Auto) 0.6 % 05/27/21 03:33 Baso % (Auto) 0.1 % 05/27/21 03:33 Neut # (Auto) 7.53 K/uL (1.4-6.5) H 05/27/21 03:33 Lymph # (Auto) 1.64 K/uL (1.2-3.4) 05/27/21 03:33 [place] # (Auto) 1.61 K/uL (0.11-0.59) H 05/27/21 03:33 Eos # (Auto) 0.07 K/uL (0-0.5) 05/27/21 03:33 Baso # (Auto) 0.01 K/uL (0-0.2) 05/27/21 03:33 Immature Gran # (Auto) 0.02 K/uL (0.00-0.02) 05/27/21 03:33 D-Dimer 770 ug/L FEU (0-500) H* 05/27/21 03:33 Sodium 136 mmol/L (136-145) 05/27/21 03:33 Potassium 3.4 mmol/L (3.5-5.1) L 05/27/21 03:33 Chloride 100 mmol/L (98-107) 05/27/21 03:33 Carbon Dioxide 32 mmol/L (21-32) 05/27/21 03:33 Anion Gap 4.0 (3-11) 05/27/21 03:33 BUN 18 mg/dl (7-18) 05/27/21 03:33 Creatinine 0.84 mg/dl (0.6-1.2) 05/27/21 03:33 Est Cr Clr Drug Dosing 44.5 ml/min 05/27/21 03:33 Est GFR ( Amer) 74.0 ml/min 05/27/21 03:33 Est GFR (Non-Af Amer) 63.8 ml/min 05/27/21 03:33 BUN/Creatinine Ratio 20.8 (10-20) H 05/27/21 03:33 Glucose 115 mg/dl (70-99) H 05/27/21 03:33 Calcium 9.3 mg/dl (8.5-10.1) 05/27/21 03:33 Magnesium 1.8 mg/dl (1.8-2.4) 05/27/21 03:33 Total Bilirubin 0.7 mg/dl (0.2-1) 05/27/21 03:33 Direct Bilirubin 0.2 mg/dl (0-0.2) 05/27/21 03:33 AST 25 U/L (15-37) 05/27/21 03:33 ALT 35 (12-78) 05/27/21 03:33 Alkaline Phosphatase 67 U/L (45-117) 05/27/21 03:33 Troponin I < 0.015 ng/ml (0-0.045) 05/27/21 03:33 Total Protein 7.3 gm/dl (6.4-8.2) 05/27/21 03:33 Albumin 3.5 gm/dl (3.4-5.0) 05/27/21 03:33 Lipase 103 U/L (73-393) 05/27/21 03:33 SARS-CoV-2 (PCR) NEGATIVE (Negative) 05/27/21 03:50 Influenza Type A (PCR) Negative (Neg) 05/27/21 03:50 Influenza Type B (PCR) Negative (Neg) 05/27/21 03:50 RSV (RT-PCR) Negative (Neg) 05/27/21 03:50 Diagnostic Findings [facility] Patient: TRAY MENDOZA (Female) : 37 Status: ER Date: 05/27/21 04:10 Room #: History: SYNCOPE Slices: 58 Priors: Tech: Benitakenyatta Yonas @ [id number] Exams: CT HEAD Contrast: Accession Numbers: [id number] Referring Physician: REFERRED SELF Preliminary Findings Only See Final Report For Complete Findings CT HEAD: Comparison: CT head 10/21/16. No acute intracranial hemorrhage. No evidence of intracranial mass, extra-axial fluid collection, or acute territorial infarct. White matter hypodensities, which are nonspecific but most likely related to chronic small vessel ischemic changes. Global cerebral volume loss. Mural calcifications of internal carotid and vertebral arteries. Chronic nasal fractures. Right ethmoid mucocele is decreased in size from prior, with resolution of expansile nature. Radiologist: Alex Diane MD Study ready at 04:13 and initial results transmitted at 04:47 *This report constitutes a preliminary interpretation only. Non-acute findings felt to be unrelated to the clinical presentation may not be discussed in this report. The study will be interpreted and a final report will be generated by the local Radiologist the following shift. To reach the hospital radiology department call [phone]. If a discrepancy is found between the preliminary and final interpretations of this study, please notify us via our Client Portal at [email or web address], under QA Exams. You can also fax this report with a description of the discrepancy, or include the final report, to our daytime fax number [phone]. If faxing, please indicate the severity of discrepancy using one of the following categories: [ ] 1 - Agree/Informational [ ] 2 - Unlikely to Affect Management [ ] 3 - Possible Eventual Change of Management [ ] 4 - Probable Immediate Change of Management For all other patient related information, please fax us at [phone]. [id number] Code Status & VTE Plan Code Status Full code VTE Prophylaxis Plan VTE Prophylaxis will be ordered: Yes PG Care Time/CCT Total # of Minutes Spent Total Time Spent with Patient: Total time spent is greater than 50% in coordination of care (as documented) at patient's floor/unit and/or counseling patient: Coding Level of Care Code INT OBSERVATION CARE 70M LVL 3 Diagnoses Syncope and collapse R55 Hypokalemia due to excessive gastrointestinal loss of potassium E87.6 Dehydration, moderate E86.0 Insomnia G47.00 Glaucoma H40.9 Vitamin D deficiency E55.9 Hypertension I10
--- NOTE | 2021-05-27 08:18 | XRay Report ---
XR chest 1V portable CLINICAL HISTORY: syncope. Evaluate cardiopulmonary status COMPARISON STUDY: No previous studies for comparison. TECHNIQUE: 1 view of the chest FINDINGS: Single frontal view of the chest demonstrates the cardiomediastinal silhouette to be within normal li mits. The lungs are clear of alveolar opacities. There is no evidence for pleural effusion. There is no evidence for vascular congestion. There is no acute osseous pathology. IMPRESSION: No acute cardiopulmonary disease. ACT 112: Negative or not required by law. Electronically signed by: Remy Turner M.D. 05/27/2021 8:17 AM
--- NOTE | 2021-05-27 08:21 | CT Scan Report ---
CT head/brain wo con CLINICAL HISTORY: headache with syncope COMPARISON STUDY: 10/21/2016 CT DOSE: 1257.71 mGy.cm TECHNIQUE: Standard CT of the Brain was performed without IV contrast. A dose lowering technique was utilized adhering to the principles of ALARA. FINDINGS: Extraaxial space: There is no evidence for subdural hematoma. There are no extra-axial fluid collecti ons. Ventricles and cisterns: The ventricles are mildly dilated bilaterally. There is no evidence for mid line shift or mass effect. Parenchyma: There is no subarachnoid or intraparenchymal hemorrhage. There is no evidence for an acu te infarct or cerebral edema. There is mild cerebral cortical atrophy and decreased attenuation in th e periventricular white matter representing remote small vessel disease. There are no gross mass lesi ons. Osseous structures: There is no evidence for an acute fracture. There is evidence for previous sinus surgery with mucosal thickening involving the right ethmoid air cells. The remaining visualized paran henry sinuses are clear. The mastoid air cells are clear bilaterally. Soft tissues: There is no evidence for focal soft tissue swelling. IMPRESSION: No acute intracerebral pathology. Cerebral cortical atrophy and remote small vessel disea se are again seen. ACT 112: Negative or not required by law. Electronically signed by: Remy Turner M.D. 05/27/2021 8:19 AM
[2021-05-27] MEDS ORDERED: CHOLESTYRAMINE LIGHT 4 GM PKT PO PRN (08:57)
[2021-05-27] MEDS ORDERED: ONDANSETRON INJ 2 MG/ML 2 ML VIAL IV PRN (08:57)
[2021-05-27] MEDS ORDERED: ACETAMINOPHEN 325 MG TAB PO PRN (08:57)
[2021-05-27] MEDS ORDERED: ALPRAZolam 0.25 MG TABLET PO PRN (08:57)
[2021-05-27] MEDS: NSS + 20MEQ KCL 20 MEQ/1,000 ML BAG IV SCH (10:15)
[2021-05-27] MEDS: TOCOPHERYL, DL-ALPHA 100 UNITS CAP PO SCH (10:17)
[2021-05-27] MEDS: CHOLECALCIFEROL 1,000 UNITS 25 MCG TAB PO SCH (10:17)
[2021-05-27] MEDS: TIMOLOL GFS 0.5% OPH SOLN 74 DROPS/5 ML BTL OPB SCH (10:18)
[2021-05-27] MEDS: HEPARIN SOD 5,000 UNIT/0.5 ML VIAL SQ SCH ×2 (10:22→22:58)
[2021-05-27 11:32] LABS: Adenovirus F 40/41 PCR Not Detected (NotDetected); Astrovirus PCR Not Detected (NotDetected); Campylobacter PCR Not Detected (NotDetected); Cryptosporidium PCR Not Detected (NotDetected); Cyclospora cayetanensis PCR Not Detected (NotDetected); Entamoeba histolytica PCR Not Detected (NotDetected); Enteroaggregative E.coli(EAEC) Not Detected (NotDetected); Enteropathogenic E.coli (EPEC) Not Detected (NotDetected); Enterotoxigenic E.coli (ETEC) Not Detected (NotDetected); Giardia lamblia PCR Not Detected (NotDetected); Norovirus GI/GII PCR Not Detected (NotDetected); Plesiomonas shigelloides PCR Not Detected (NotDetected); Rotavirus A PCR Not Detected (NotDetected); Salmonella PCR Not Detected (NotDetected); Sapovirus PCR Not Detected (NotDetected); Shiga-like Toxin E.coli (STEC) Not Detected (NotDetected); Shigella/Enteroinvasive E.coli Not Detected (NotDetected); Vibrio cholerae PCR Not Detected (NotDetected); Vibrio species PCR Not Detected (NotDetected); Yersinia enterocolitica PCR Not Detected (NotDetected)
--- NOTE | 2021-05-27 11:57 | Electrocardiogram Report ---
Test Reason : Blood Pressure : / mmHG Vent. Rate : 084 BPM Atrial Rate : 084 BPM P-R Int : 156 ms QRS Dur : 074 ms QT Int : 358 ms P-R-T Axes : - 062 degrees QTc Int : 423 ms Sinus rhythm with Premature atrial complexes Low voltage QRS Poor R wave progression, consider anterior [place] vs. lead placement vs. LVH Abnormal ECG When compared with ECG of 02-JUN-2004 22:17, Premature atrial complexes are now Present QRS axis Shifted left Confirmed by Ramón Conway ([id number]) on 05/27/2021 11:56:55 AM Referred By: REFERRED SELF Confirmed By:Ramón Conway
[2021-05-27 13:01] LABS: Cdiff Antigen Positive
[2021-05-27 13:02] LABS: Cdiff Toxin A+B Positive Cdiff Toxin (Negative)
[2021-05-27] MEDS: RASPBERRY SYRUP 5 ML UDP PO SCH ×2 (16:06→19:18)
[2021-05-27] MEDS: ADVANCED PROBIOTIC 1250 MG CAPSULE PO SCH (16:07)
[2021-05-27] MEDS: VANCOMYCIN HCL 125 MG/2.5ML SOLN PO SCH ×2 (16:07→19:19)
--- NOTE | 2021-05-27 17:20 | Communication Note ---
Date of Service: May 27, 2021 Patient with lab-confirmed c diff. Vancomycin 125mg QID begun; cholestyramine initiated; lactinex added. Allow clear liquids. Continue IVF. Replace low K. Labs in am. Patient was still in ER during my afternoon check. Patient's daughter was at bedside. I discussed the c diff diagnosis with patient and her daughter. Discussed cleaning of pt's home/bathroom/etc with bleach or bleach wipes -- daughter voiced understanding. Explained that c diff spores are not killed by purell research mechanic; hand washing w/ soap/H20 needed. Discussed typical scenario in which c diff occurs (patient was on 5-day course of clindamycin about 2 weeks prior for ingrown toenail). Exam - gen - NAD, pleasant mouth - MM dry heart - RRR, s1 s2, no murmur lungs - CTA b/l abd - soft NT ND BS+ ext - no edema skin - turgor decreased A: C diff colitis; syncope 2nd to severe dehydration from her infection. Plan: Vanco PO x 10 days; IVF; clears; labs in am. Contact precautions. Change observation status to full admission given c diff colitis. Juan Foster MD
[2021-05-28] MEDS: VANCOMYCIN HCL 125 MG/2.5ML SOLN PO SCH ×4 (00:24→17:50)
[2021-05-28] MEDS: RASPBERRY SYRUP 5 ML UDP PO SCH ×4 (00:24→17:50)
[2021-05-28] MEDS: NSS + 20MEQ KCL 20 MEQ/1,000 ML BAG IV SCH ×2 (00:25→12:44)
[2021-05-28 06:46] LABS: Hematocrit (blood only) 39.7 % (37-47); Hemoglobin 13.4 g/dL (12.0-16.0); Mean Corpuscular Hemoglobin 30.3 pg (25-34); Mean Corpuscular Hgb Conc 33.8 g/dL (32-36); Mean Corpuscular Volume 89.8 fL (80-100); Mean Platelet Volume 10.7 fL (7.4-10.4); Platelet Count 221 K/uL (130-400); RDW Coefficient of Variation 13.8 % (11.5-14.5); RDW Standard Deviation 45.9 fL (36.4-46.3); Red Blood Count 4.42 M/uL (4.2-5.4); White Blood Count 6.47 K/uL (4.8-10.8)
[2021-05-28 07:14] LABS: Basophils # (auto) 0.01 K/uL (0-0.2); Basophils % (auto) 0.2 %; Eosinophils # (auto) 0.08 K/uL (0-0.5); Eosinophils % (auto) 1.2 %; Immature Granulocytes # (auto) 0.01 K/uL (0.00-0.02); Immature Granulocytes % (auto) 0.2 %; Lymphocytes # (auto) 1.64 K/uL (1.2-3.4); Lymphocytes % (auto) 25.3 %; Monocytes # (auto) 1.01 K/uL (0.11-0.59); Monocytes % (auto) 15.6 %; Neutrophils # (auto) 3.72 K/uL (1.4-6.5); Neutrophils % (auto) 57.5 %
[2021-05-28 07:24] LABS: BUN Creatinine Ratio 17.4 (10-20); Calcium 8.3 mg/dl (8.5-10.1); Creatinine Clr Calc Pharmacy 64.4 ml/min; Est GFR (African American) 98.1 ml/min; Est GFR (Non-African American) 84.6 ml/min; Magnesium 1.8 mg/dl (1.8-2.4); Potassium 3.7 mmol/L (3.5-5.1)
[2021-05-28] MEDS: ADVANCED PROBIOTIC 1250 MG CAPSULE PO SCH (09:23)
[2021-05-28] MEDS: HEPARIN SOD 5,000 UNIT/0.5 ML VIAL SQ SCH ×2 (09:24→20:37)
[2021-05-28] MEDS: CHOLECALCIFEROL 1,000 UNITS 25 MCG TAB PO SCH (09:24)
[2021-05-28] MEDS: TOCOPHERYL, DL-ALPHA 100 UNITS CAP PO SCH (09:24)
--- NOTE | 2021-05-28 10:24 | Hospitalist Progress Note ---
Date of Service May 28, 2021 Assessment & Plan (1) C. difficile colitis: Plan: day #2 of vancomycin 125mg QID. cont lactinex. cont IV fluids. Advance diet to full liquids as tolerated. cont cholestyramine BID. patient had 5-day course of clindamycin earlier this month. has never had c diff prior. cont supportive care. cont contact precautions. labs in am. (2) Syncope and collapse: Plan: Likely secondary to defecation syncope/dehydration. CT head negative She is c/o posterior neck pain today - will obtain CT cervical spine - r/o fracture. If negative - voltaren gel qid. Telemetry has been normal since arrival. (3) Dehydration, moderate: Plan: Improving but not resolved. Cont IV fluids. Labs in am. (4) Hypertension: Plan: Hold spironolactone/HCTZ given her dehydration. Plan: DVT proph - heparin SC updated pt's daughter by phone this evening obtain PT/OT evals Admission and Anticipated Discharge Date Admission Date: May 27, 2021 Subjective patient feeling "a bit " better today still with lots of diarrhea - 4 episodes since late last night - but perhaps not as voluminous and trying to slightly form no abdominal pain this am a littel bloating denies nausea/emesis tolerating clears Review of Systems Review of Systems: gen - no fevers, no chills cv - no chest pain pulm - no cough/congestion GI - no blood per rectum musculo - c/o posterior neck pain from fall/sycnope Physical Exam Physical Exam: gen - NAD, pleasant mouth - MM still dry neck - mildly tender high cervical spine segments and on occiput of skull heart - RRR, s1 s2 lungs - CTA b/l abd - hyperactive bowel sounds, NT, slight distension, no HSM ext - no edema, pulses 2+ b/l skin - turgor still decreased Results & Data Results & Data ([facility]) Vital Signs (Past 12 Hours) Vital Signs Temp Pulse Resp BP Pulse Ox Pulse Ox 05/28/21 10:00 80 20 156/64 H 97 05/28/21 08:57 97 05/28/21 08:20 36.7 C 76 20 154/87 H 94 05/28/21 05:59 72 16 141/78 H 94 Laboratory Results Laboratory Results - last 24 hr 05/28/21 05/28/21 06:04 06:04 WBC 6.47 RBC 4.42 Hgb 13.4 Hct 39.7 MCV 89.8 MCH 30.3 MCHC 33.8 RDW Std Deviation 45.9 RDW Coeff of Cecy 13.8 Plt Count 221 MPV 10.7 H Immature Gran % (Auto) 0.2 Neut % (Auto) 57.5 Lymph % (Auto) 25.3 [place] % (Auto) 15.6 Eos % (Auto) 1.2 Baso % (Auto) 0.2 Neut # (Auto) 3.72 Lymph # (Auto) 1.64 [place] # (Auto) 1.01 H Eos # (Auto) 0.08 Baso # (Auto) 0.01 Immature Gran # (Auto) 0.01 Sodium 143 D Potassium 3.7 Chloride 110 H Carbon Dioxide 28 Anion Gap 5.0 BUN 10 D Creatinine 0.58 L Est Cr Clr Drug Dosing 64.4 Est GFR ( Amer) 98.1 Est GFR (Non-Af Amer) 84.6 BUN/Creatinine Ratio 17.4 Glucose 99 Calcium 8.3 L Magnesium 1.8 PG Care Time/CCT Total # of Minutes Spent Total Time Spent with Patient: Total time spent is greater than 50% in coordination of care (as documented) at patient's floor/unit and/or counseling patient: Coding Level of Care Code 12506 Subseq Hosp Care Lvl 2 Diagnoses C. difficile colitis A04.72 Syncope and collapse R55 Dehydration, moderate E86.0 Hypertension I10
--- NOTE | 2021-05-28 11:47 | CT Scan Report ---
CT cervical spine wo con CLINICAL HISTORY: recent fall, high c-spine pain COMPARISON STUDY: No previous studies for comparison. CT DOSE: 183.32 mGy.cm TECHNIQUE: Standard CT of the Cervical Spine was performed without IV contrast. A dose lowering te chnique was utilized adhering to the principles of ALARA. FINDINGS: Bones: The bones are osteopenic. There is mild straightening of expected cervical lordosis related to degenerative change. There is no evidence for an acute fracture or malalignment. The heights of the vertebral bodies are maintained. The vertebral bodies are in anatomic alignment. The odontoid is inta ct. Degenerative changes are seen at the atlantoaxial articulation. Disc spaces:There is marked disc space narrowing from C4 through C7 with endplate cirrhosis and osteo phyte formation. Apophyseal joints:There is marked asymmetric degenerative apophyseal joint disease seen at C2-3 and C 3-4 on the left. Soft tissues:The prevertebral soft tissues are within normal limits. IMPRESSION: Osteopenia with no acute abnormality. Marked degenerative disc and degenerative joint dis ease. ACT 112: Negative or not required by law. Electronically signed by: Remy Turner M.D. 05/28/2021 11:46 AM
[2021-05-28] MEDS: TIMOLOL GFS 0.5% OPH SOLN 74 DROPS/5 ML BTL OPB SCH (12:15)
[2021-05-28] MEDS: DICLOFENAC SOD 1% GEL 100 GM TUBE EXT SCH ×2 (17:26→20:37)
[2021-05-28] MEDS ORDERED: ALPRAZolam 0.25 MG TABLET PO SCH (21:00)
[2021-05-29] MEDS: VANCOMYCIN HCL 125 MG/2.5ML SOLN PO SCH ×3 (00:47→12:27)
[2021-05-29] MEDS: RASPBERRY SYRUP 5 ML UDP PO SCH ×3 (00:47→12:26)
[2021-05-29] MEDS: NSS + 20MEQ KCL 20 MEQ/1,000 ML BAG IV SCH (00:48)
[2021-05-29 07:32] LABS: BUN Creatinine Ratio 17.3 (10-20); Calcium 8.1 mg/dl (8.5-10.1); Creatinine Clr Calc Pharmacy 66.7 ml/min; Est GFR (African American) 99.2 ml/min; Est GFR (Non-African American) 85.6 ml/min
[2021-05-29] MEDS: HEPARIN SOD 5,000 UNIT/0.5 ML VIAL SQ SCH (08:49)
[2021-05-29] MEDS: ADVANCED PROBIOTIC 1250 MG CAPSULE PO SCH (08:49)
[2021-05-29] MEDS: TIMOLOL GFS 0.5% OPH SOLN 74 DROPS/5 ML BTL OPB SCH (08:49)
[2021-05-29] MEDS: TOCOPHERYL, DL-ALPHA 100 UNITS CAP PO SCH (08:50)
[2021-05-29] MEDS: DICLOFENAC SOD 1% GEL 100 GM TUBE EXT SCH ×2 (08:50→12:28)
[2021-05-29] MEDS: CHOLECALCIFEROL 1,000 UNITS 25 MCG TAB PO SCH (08:50)
--- NOTE | 2021-05-29 18:47 | Discharge Summary ---
Date of Service May 29, 2021 Admission HPI Per Admitting Provider The patient is an 85-year-old female with a past medical history including insomnia, vitamin D deficiency, hypertension and glaucoma. She reports having a large number of loose stools during the day today, possibly as many as 10. She denies any new food intakes, or questionable old food intake. She has not had any previous occurrence of the symptoms. This single episode occurred while she was moving her bowels on the commode. Principal Diagnosis C. diff colitis Discharge Exam Constitutional WD/WN, vitals as above Eyes EOM intact bilaterally; no conjunctival abnormality ENMT external ear and nose normal, oropharynx normal Neck trachea midline, no thyromegaly normal visual inspection Respiratory normal respiratory effort, lungs clear to auscultation no respiratory distress Cardiovascular RRR, no murmur, no edema Gastrointestinal (Abdomen) Inspection/Auscultation: abdomen normal to inspection; abdomen not distended Musculoskeletal no cyanosis or clubbing, extremities motor strength 5/5 Skin no rashes, warm and dry Neurologic moves all extremities and awake Psychiatric Orientation: alert, oriented to person and cooperative Discharge Data Allergies Allergy/AdvReac Type Severity Reaction Status Date / Time atropine Allergy Unknown Unknown Verified 05/27/21 07:30 Cephalosporins Allergy Unknown CEPHALEXIN Verified 05/27/21 07:30 meperidine Allergy Unknown Unknown Verified 05/27/21 07:30 Consultations 05/27/21 05:28 ED Decision to Admit Stat Ordered Studies 05/27/21 03:26 CT head/brain wo con Urgent 05/28/21 10:24 CT cervical spine wo con Urgent Hospital Course (1) C. difficile colitis: day #2 of vancomycin 125mg QID. cont lactinex. cont IV fluids. cont cholestyramine BID. patient had 5-day course of clindamycin earlier this month. has never had c diff prior. cont supportive care. cont contact precautions. labs in am. (2) Syncope and collapse: Likely secondary to defecation syncope/dehydration. CT head negative She is c/o posterior neck pain today - will obtain CT cervical spine - r/o fracture. If negative - voltaren gel qid. Telemetry has been normal since arrival. (3) Dehydration, moderate: Improving but not resolved. Cont IV fluids. Labs in am. (4) Hypertension: Hold spironolactone/HCTZ given her dehydration. DVT proph - heparin SC Total Time Total Time Spent Total Time Spent (In Minutes): 35 Discharge Plan Discharge Items Patient Disposition: Home - Self-Care Reason For Visit: SYNCOPE,DEHYDRATION,DIARRHEA Discharge Diagnosis: C. diff infection, dehydration Activity: Resume your previous activity Non-emergency contact: Primary Care Provider Call non-emergency contact if: your symptoms worsen Follow-up/Referrals: Tayo Payne MD [Primary Care Provider] - Diet: Regular Addtl Attending Provider Instructions: Ms. Hinojosa, Mikal were hospitalized with a C. diff infection. This is an infection in your colon (large intestine) that can occur when exposed to antibiotics. Unfortunately, C. diff resides in your colon and can grow out of control when the usual, good bacteria in your GI tract are killed by the antibiotics. A different antibiotic (one that only affects C. diff) is used to get the bacteria under control and let healthy bacteria repopulate your GI tract. You will need to take the oral antibiotic (called vancomycin) for 10 total days. The antibiotic is a hassle because it is 4 times per day, but this is the "gold standard" treatment and has the best chance of success. It is already working for you, so this is encouraging. Your next dose of antibiotic is today (05/29/2021) at 6:00pm, then 4 times a day until gone. Please continue to take it until the antibiotics are completely gone. We really want to avoid a recurrence as this requires more stringent and longer treatments, so just because the diarrhea resolves doesn't mean you should stop the vancomycin. While you are on the vancomycin, please eat yogurt that has "Live Active Cultures" which can help repopulate your GI tract with good bacteria. Examples of this yogurt are Chobani and Dexter-Active, but any yogurt with the phrase "Live Active Cultures" should be fine. You could alternatively take a pill with probiotics in them. That choice is up to you, and I have no evidence that one or the other is more effective. Pending Studies at Discharge: No Stand-Alone Forms: My [employer], Smoking Cessation Medications and DC Order Prescriptions: New vancomycin 125 mg capsule 125 mg PO QID Qty: 32 RF: 0 Continued vitamin E 100 unit Capsule 100 unit PO DAILY RF: 0 spironolacton-hydrochlorothiaz 25-25 mg Tablet 1 tab PO DAILY RF: 0 alprazolam 0.25 mg tablet 0.25 mg PO PM RF: 0 timolol maleate 0.25 % drops 1 drp OPB QAM RF: 0 Hair,Skin and Nails Tablet 1 tab PO DAILY RF: 0 cholecalciferol (vitamin D3) [Vitamin D3] 25 mcg (1,000 unit) Tablet 25 mcg PO DAILY RF: 0 coenzyme Q10 10 mg Capsule 10 mg PO DAILY RF: 0 Discharge Orders: Discharge Order (Routine); Ordered 05/29/21 Ordered By: Bossman Storey Admission Data Admit Date/Time: 05/27/21 17:09 Attending Provider: Bossman Storey Admit Provider: Garry Magana Primary Care Provider: Tayo Payne Other Providers: Bossman Storey Other Interventions: Discharge Summary Assessment (RN) Last Done: 05/29/21 14:39 Coding Level of Care Code D/C DAY MANAGEMENT >30 MINS Diagnoses C. difficile colitis A04.72 Syncope and collapse R55 Dehydration, moderate E86.0 Hypertension I10
[2021-05-29] MEDS ORDERED: ALPRAZolam 0.5 MG TABLET PO SCH (21:00)
== END 2021-05-29 16:13 | disposition home or self-care (01) | DRG 373 ==
LOC: ED 03:14 → EDINP 03:14 → SUATTDRO 17:09